=== PATIENT | male | born 1950 | race Caucasian/White ===

== ENCOUNTER 2021-11-21 09:16 | Inpatient (IN) | payer MEDICARE, OTHER ==
[~2021-11-21] VITALS: Ht 162.6 cm; Wt 58.9 kg
[2021-11-21 10:01] LABS: BASOPHILS % (AUTO) 0.3 % (0.0-2.0); EOSINOPHILS % (AUTO) 2.2 % (1.0-6.0); HEMATOCRIT 24.9 % (41-53); HEMOGLOBIN 8.3 g/dL (13.5-17.5); LYMPHOCYTES # (AUTO) 0.7 K/uL (1.0-4.8); LYMPHOCYTES % (AUTO) 16.7 % (22.0-44.0); MEAN CORPUSCULAR HEMOGLOBIN 31.4 pg (26.0-34.0); MEAN CORPUSCULAR HGB CONC 33.4 G/dL (31.0-37.0); MEAN CORPUSCULAR VOLUME 94 fL (80-100); MONOCYTES # (AUTO) 0.7 K/uL (0.1-1.0); MONOCYTES % (AUTO) 16.4 % (2.0-9.0); NEUTROPHILS # (AUTO) 2.8 K/uL (1.8-7.7); NEUTROPHILS % (AUTO) 64.4 % (40.0-70.0); PLATELET COUNT (AUTO) 139 K/uL (150-450); RED BLOOD CELL COUNT(AUTO) 2.64 MIL/uL (4.50-5.90); RED CELL DISTRIBUTION WIDTH 14.4 % (11.5-14.5)
[2021-11-21 10:13] LABS: CALCIUM, TOTAL 8.4 mg/dL (8.8-10.5); CREATININE 4.03 mg/dL (0.60-1.30); POTASSIUM 4.3 mmol/L (3.5-5.1)
[2021-11-21 10:19] LABS: ALBUMIN 2.6 g/dL (3.4-5.0); BILIRUBIN,TOTAL 0.3 mg/dL (0.1-1.0); TOTAL PROTEIN, SERUM 6.1 g/dL (6.4-8.2)
[2021-11-21 10:20] LABS: INR 0.9 (0.9-1.1); PROTHROMBIN TIME 9.9 SEC (9.4-11.6)
[2021-11-21] MEDS ORDERED: OxyCODONE HCL/ACETAMINOPHEN 5-325 MG TABLET PO PRN (22:45)
[2021-11-21] MEDS ORDERED: ACETAMINOPHEN 325 MG TABLET PO PRN (22:45)
[2021-11-21] MEDS ORDERED: HEPARIN SODIUM,PORCINE 5,000 UNITS/ML VIAL IVP PRN (23:00)
[2021-11-21] MEDS ORDERED: HEPARIN SODIUM,PORCINE 5,000 UNITS/ML VIAL IVP ONE (23:00)
[2021-11-21] MEDS: HEPARIN SODIUM 25000 UNITS/D5W 250 ML IV PRN (23:08)
[2021-11-21] MEDS: MORPHINE SULFATE 2 MG/ML SYRINGE IVP PRN (23:10)
[2021-11-21 23:19] LABS: HEMOGLOBIN 8.9 g/dL (13.5-17.5); LYMPHOCYTES # (AUTO) 0.7 K/uL (1.0-4.8); NEUTROPHILS % (AUTO) 68.2 % (40.0-70.0); PLATELET COUNT (AUTO) 159 K/uL (150-450)
[2021-11-21 23:25] LABS: BASOPHILS % (AUTO) 0.1 % (0.0-2.0); EOSINOPHILS % (AUTO) 1.1 % (1.0-6.0); HEMATOCRIT 26.7 % (41-53); LYMPHOCYTES % (AUTO) 15.3 % (22.0-44.0); MEAN CORPUSCULAR HGB CONC 33.4 G/dL (31.0-37.0); MEAN CORPUSCULAR VOLUME 96 fL (80-100); MONOCYTES # (AUTO) 0.7 K/uL (0.1-1.0); MONOCYTES % (AUTO) 15.3 % (2.0-9.0); RED BLOOD CELL COUNT(AUTO) 2.79 MIL/uL (4.50-5.90)
[2021-11-22 00:32] LABS: PROTHROMBIN TIME 10.5 SEC (9.4-11.6)
[2021-11-22 01:04] LABS: APPEARANCE,URINE CLEAR (CLEAR); BILIRUBIN,URINE NEGATIVE (NEGATIVE); GLUCOSE, URINE (UA) NEGATIVE (NEGATIVE); KETONES,URINE NEGATIVE (NEGATIVE); LEUKOCYTE ESTERASE ,URINE NEGATIVE (NEGATIVE); NITRATE,URINE NEGATIVE (NEGATIVE); OCCULT BLOOD,URINE MODERATE (NEGATIVE); PH,URINE 5.5 (5.0-8.0); PROTEIN,URINE SEE CONFIRM (NEGATIVE)
[2021-11-22 01:16] LABS: SULFOSALICYLIC ACID,URINE 3+ (Negative)
[2021-11-22 01:18] LABS: RBC,URINE 0-2 /HPF (0-2)
[2021-11-22 01:19] LABS: BACTERIA,URINE None Seen /HPF (None Seen); WBC,URINE None Seen /HPF (0-5)
[2021-11-22 02:39] LABS: COVID AG,FIA SOURCE NASOPHARYNGEAL
[2021-11-22 05:59] LABS: BASOPHILS % (AUTO) 0.4 % (0.0-2.0); HEMATOCRIT 23.4 % (41-53); HEMOGLOBIN 7.8 g/dL (13.5-17.5); LYMPHOCYTES # (AUTO) 0.8 K/uL (1.0-4.8); LYMPHOCYTES % (AUTO) 18.4 % (22.0-44.0); MEAN CORPUSCULAR HEMOGLOBIN 31.3 pg (26.0-34.0); MEAN CORPUSCULAR HGB CONC 33.2 G/dL (31.0-37.0); MEAN CORPUSCULAR VOLUME 94 fL (80-100); MONOCYTES # (AUTO) 0.6 K/uL (0.1-1.0); MONOCYTES % (AUTO) 15.1 % (2.0-9.0); NEUTROPHILS # (AUTO) 2.8 K/uL (1.8-7.7); NEUTROPHILS % (AUTO) 65.1 % (40.0-70.0); PLATELET COUNT (AUTO) 153 K/uL (150-450); RED BLOOD CELL COUNT(AUTO) 2.48 MIL/uL (4.50-5.90); RED CELL DISTRIBUTION WIDTH 14.6 % (11.5-14.5)
[2021-11-22 06:08] LABS: ALBUMIN 2.7 g/dL (3.4-5.0); BILIRUBIN,TOTAL 0.4 mg/dL (0.1-1.0); CALCIUM, TOTAL 8.7 mg/dL (8.8-10.5); CREATININE 3.49 mg/dL (0.60-1.30); POTASSIUM 4.6 mmol/L (3.5-5.1); TOTAL PROTEIN, SERUM 6.4 g/dL (6.4-8.2)
[2021-11-22] MEDS: MORPHINE SULFATE 2 MG/ML SYRINGE IVP PRN ×2 (06:08→21:28)
[2021-11-22] MEDS: ALBUTEROL SULFATE 2.5 MG/0.5 ML NEB SOLUTION NEB PRN (06:08)
[2021-11-22] MEDS ORDERED: ALBU8.5H8 IH (07:39)
[2021-11-22] MEDS ORDERED: GABA-1216 PO (07:39)
[2021-11-22] MEDS ORDERED: FURO40 PO (07:39)
[2021-11-22] MEDS ORDERED: ISOS30TA92 PO (07:39)
[2021-11-22] MEDS ORDERED: ASPI-1227 PO (07:39)
[2021-11-22] MEDS ORDERED: GUAIF10 PO (07:39)
[2021-11-22] MEDS ORDERED: MIRT-89 PO (07:39)
[2021-11-22] MEDS ORDERED: ALLO100T2 PO (07:39)
[2021-11-22] MEDS ORDERED: AMLO-257 PO (07:39)
[2021-11-22] MEDS ORDERED: ATOR40TA28 PO (07:39)
[2021-11-22] MEDS ORDERED: METO-558 PO (07:39)
[2021-11-22] MEDS ORDERED: RANO500T3 PO (07:39)
[2021-11-22] MEDS ORDERED: NITR0.4T52 SL (07:39)
[2021-11-22] MEDS ORDERED: DOCU-270 PO (07:39)
[2021-11-22] MEDS ORDERED: CALC0.2521 PO (07:39)
[2021-11-22] MEDS ORDERED: GABA-1181 PO (14:06)
[2021-11-22] MEDS ORDERED: ISOS60TA77 PO (14:06)
[2021-11-22] MEDS ORDERED: FERR325T23 PO (14:06)
[2021-11-22] MEDS: DEXTROSE 5%-0.45% SODIUM CHL 1,000 ML IV SCH ×2 (14:18→23:55)
[2021-11-22] MEDS: FERROUS SULFATE 325 MG EC TABLET PO SCH (17:16)
[2021-11-22] MEDS: MIRTAZAPINE 15 MG TABLET PO SCH (21:00)
[2021-11-22] MEDS: DOCUSATE SODIUM 100 MG CAPSULE PO SCH (21:00)
[2021-11-22] MEDS: GABAPENTIN 300 MG CAPSULE PO SCH (21:00)
[2021-11-22] MEDS: RANOLAZINE 500 MG ER TABLET PO SCH (21:00)
[2021-11-23] MEDS: IPRATROPIUM BROMIDE 0.5 MG/2.5 ML NEB SOLUTION NEB PRN (02:35)
[2021-11-23 07:06] LABS: ALBUMIN 2.4 g/dL (3.4-5.0); BILIRUBIN,TOTAL 0.4 mg/dL (0.1-1.0); CALCIUM, TOTAL 8.5 mg/dL (8.8-10.5); CREATININE 3.2 mg/dL (0.60-1.30); MAGNESIUM 2.1 mg/dL (1.80-2.40); PHOSPHORUS 2.9 mg/dL (2.5-4.9); POTASSIUM 4.2 mmol/L (3.5-5.1)
[2021-11-23] MEDS: FERROUS SULFATE 325 MG EC TABLET PO SCH ×2 (07:06→18:46)
[2021-11-23 07:19] LABS: BASOPHILS % (AUTO) 0.4 % (0.0-2.0); EOSINOPHILS % (AUTO) 0.2 % (1.0-6.0); HEMATOCRIT 22.3 % (41-53); HEMOGLOBIN 7.4 g/dL (13.5-17.5); LYMPHOCYTES % (AUTO) 19.1 % (22.0-44.0); MEAN CORPUSCULAR HEMOGLOBIN 31.5 pg (26.0-34.0); MEAN CORPUSCULAR HGB CONC 33.3 G/dL (31.0-37.0); MEAN CORPUSCULAR VOLUME 95 fL (80-100); MONOCYTES # (AUTO) 0.5 K/uL (0.1-1.0); MONOCYTES % (AUTO) 10.6 % (2.0-9.0); NEUTROPHILS # (AUTO) 3.6 K/uL (1.8-7.7); NEUTROPHILS % (AUTO) 69.7 % (40.0-70.0); PLATELET COUNT (AUTO) 185 K/uL (150-450); RED BLOOD CELL COUNT(AUTO) 2.36 MIL/uL (4.50-5.90); RED CELL DISTRIBUTION WIDTH 14.8 % (11.5-14.5)
[2021-11-23] MEDS: AmLODIPine BESYLATE 5 MG TABLET PO SCH (08:38)
[2021-11-23] MEDS: ASPIRIN 81 MG DR TABLET PO SCH (08:39)
[2021-11-23] MEDS: ATORVASTATIN CALCIUM 40 MG TABLET PO SCH (08:45)
[2021-11-23] MEDS: FUROSEMIDE 40 MG TABLET PO SCH (09:19)
[2021-11-23] MEDS: RANOLAZINE 500 MG ER TABLET PO SCH ×2 (09:19→20:46)
[2021-11-23] MEDS: ISOSORBIDE MONONITRATE 60 MG ER TABLET PO SCH (09:19)
[2021-11-23] MEDS: METOPROLOL SUCCINATE 50 MG ER TABLET PO SCH (09:19)
[2021-11-23] MEDS: CALCITRIOL 0.25 MCG CAPSULE PO SCH (09:19)
[2021-11-23] MEDS: DOCUSATE SODIUM 100 MG CAPSULE PO SCH ×3 (09:29→20:46)
[2021-11-23] MEDS: GABAPENTIN 300 MG CAPSULE PO SCH ×4 (11:11→20:46)
[2021-11-23 15:23] VITALS: BP 106/51
[2021-11-23] MEDS: HEPARIN SODIUM,PORCINE 5,000 UNITS/ML VIAL IVP PRN (16:20)
[2021-11-23 19:43] VITALS: BP 119/53
[2021-11-23] MEDS: MIRTAZAPINE 15 MG TABLET PO SCH ×2 (20:46→23:08)
[2021-11-24 00:10] VITALS: BP 121/54
[2021-11-24 04:43] VITALS: BP 128/58
[2021-11-24 07:32] VITALS: BP 118/56
[2021-11-24] MEDS: RANOLAZINE 500 MG ER TABLET PO SCH ×3 (08:07→20:37)
[2021-11-24] MEDS: AmLODIPine BESYLATE 5 MG TABLET PO SCH (08:08)
[2021-11-24] MEDS: FERROUS SULFATE 325 MG EC TABLET PO SCH ×2 (08:08→18:02)
[2021-11-24] MEDS: METOPROLOL SUCCINATE 50 MG ER TABLET PO SCH (08:08)
[2021-11-24] MEDS: DOCUSATE SODIUM 100 MG CAPSULE PO SCH ×3 (08:08→20:37)
[2021-11-24] MEDS: ISOSORBIDE MONONITRATE 60 MG ER TABLET PO SCH (08:08)
[2021-11-24] MEDS: FUROSEMIDE 40 MG TABLET PO SCH (08:08)
[2021-11-24] MEDS: ASPIRIN 81 MG DR TABLET PO SCH (08:08)
[2021-11-24] MEDS: ATORVASTATIN CALCIUM 40 MG TABLET PO SCH (08:08)
[2021-11-24] MEDS: GABAPENTIN 300 MG CAPSULE PO SCH ×3 (08:08→19:44)
[2021-11-24] MEDS: HEPARIN SODIUM,PORCINE 5,000 UNITS/ML VIAL IVP PRN (08:17)
[2021-11-24 11:23] VITALS: BP 120/54
[2021-11-24] MEDS: HEPARIN SODIUM 25000 UNITS/D5W 250 ML IV PRN (18:05)
[2021-11-24 20:14] VITALS: BP 102/50
[2021-11-24] MEDS: MIRTAZAPINE 15 MG TABLET PO SCH (20:36)
[2021-11-24 22:53] LABS: BASOPHILS % (AUTO) 0.3 % (0.0-2.0); MEAN CORPUSCULAR HEMOGLOBIN 31.3 pg (26.0-34.0); MONOCYTES # (AUTO) 0.6 K/uL (0.1-1.0); NEUTROPHILS % (AUTO) 62.9 % (40.0-70.0)
[2021-11-24 22:57] LABS: EOSINOPHILS % (AUTO) 1.2 % (1.0-6.0); LYMPHOCYTES # (AUTO) 1.7 K/uL (1.0-4.8); LYMPHOCYTES % (AUTO) 26.6 % (22.0-44.0); MEAN CORPUSCULAR HGB CONC 32.7 G/dL (31.0-37.0); MEAN CORPUSCULAR VOLUME 96 fL (80-100); PLATELET COUNT (AUTO) 233 K/uL (150-450); RED BLOOD CELL COUNT(AUTO) 1.78 MIL/uL (4.50-5.90)
[2021-11-24 23:01] LABS: HEMATOCRIT 17.1 % (41-53); HEMOGLOBIN 5.6 g/dL (13.5-17.5)
[2021-11-24] MEDS ORDERED: SODIUM CHLORIDE 0.9% 500 ML IV ONE (23:11)
[2021-11-24 23:19] VITALS: BP 109/55
[2021-11-25] VITALS (20 sets, daily range): BP systolic 98–138; BP diastolic 42–88
[2021-11-25 06:46] LABS: BASOPHILS % (AUTO) 0.2 % (0.0-2.0); HEMATOCRIT 23.3 % (41-53); HEMOGLOBIN 7.9 g/dL (13.5-17.5); LYMPHOCYTES # (AUTO) 1.6 K/uL (1.0-4.8); MEAN CORPUSCULAR HEMOGLOBIN 31.6 pg (26.0-34.0); MEAN CORPUSCULAR HGB CONC 33.8 G/dL (31.0-37.0); MEAN CORPUSCULAR VOLUME 93 fL (80-100); MONOCYTES # (AUTO) 0.8 K/uL (0.1-1.0); MONOCYTES % (AUTO) 10.9 % (2.0-9.0); NEUTROPHILS # (AUTO) 4.7 K/uL (1.8-7.7); NEUTROPHILS % (AUTO) 63.9 % (40.0-70.0); PLATELET COUNT (AUTO) 227 K/uL (150-450); RED BLOOD CELL COUNT(AUTO) 2.49 MIL/uL (4.50-5.90); RED CELL DISTRIBUTION WIDTH 14.4 % (11.5-14.5)
[2021-11-25] MEDS ORDERED: SODIUM CHLORIDE 0.9% 100 ML ONE (06:56)
[2021-11-25] MEDS: FERROUS SULFATE 325 MG EC TABLET PO SCH ×2 (08:00→16:27)
[2021-11-25] MEDS: DOCUSATE SODIUM 100 MG CAPSULE PO SCH ×2 (08:19→21:11)
[2021-11-25] MEDS: ASPIRIN 81 MG DR TABLET PO SCH (08:20)
[2021-11-25] MEDS: ATORVASTATIN CALCIUM 40 MG TABLET PO SCH (08:21)
[2021-11-25] MEDS: FUROSEMIDE 40 MG TABLET PO SCH (08:21)
[2021-11-25] MEDS: AmLODIPine BESYLATE 5 MG TABLET PO SCH (08:23)
[2021-11-25] MEDS: CALCITRIOL 0.25 MCG CAPSULE PO SCH (08:23)
[2021-11-25] MEDS: GABAPENTIN 300 MG CAPSULE PO SCH ×3 (08:23→21:11)
[2021-11-25] MEDS: ISOSORBIDE MONONITRATE 60 MG ER TABLET PO SCH (09:00)
[2021-11-25] MEDS: RANOLAZINE 500 MG ER TABLET PO SCH ×2 (09:00→21:10)
[2021-11-25] MEDS: METOPROLOL SUCCINATE 50 MG ER TABLET PO SCH (09:00)
[2021-11-25 18:07] LABS: GLUCOMETER DEV NAME(LOC) 5S.1; GLUCOSE,POINT OF CARE 157 MG/DL (70-110)
[2021-11-25 18:37] LABS: HEMOGLOBIN 10.8 g/dL (13.5-17.5)
[2021-11-25] MEDS: METOPROLOL TARTRATE 25 MG TABLET PO SCH (21:10)
[2021-11-25] MEDS: MIRTAZAPINE 15 MG TABLET PO SCH (21:11)
[2021-11-26] VITALS (7 sets, daily range): BP systolic 117–167; BP diastolic 52–93
[2021-11-26] MEDS: FERROUS SULFATE 325 MG EC TABLET PO SCH ×2 (08:00→18:00)
[2021-11-26] MEDS: RANOLAZINE 500 MG ER TABLET PO SCH ×2 (09:00→20:55)
[2021-11-26] MEDS: ISOSORBIDE MONONITRATE 60 MG ER TABLET PO SCH (09:00)
[2021-11-26] MEDS: ATORVASTATIN CALCIUM 40 MG TABLET PO SCH (09:38)
[2021-11-26] MEDS: DOCUSATE SODIUM 100 MG CAPSULE PO SCH ×2 (09:38→20:55)
[2021-11-26] MEDS: FUROSEMIDE 40 MG TABLET PO SCH (09:39)
[2021-11-26] MEDS: ASPIRIN 81 MG DR TABLET PO SCH (09:39)
[2021-11-26] MEDS: METOPROLOL TARTRATE 25 MG TABLET PO SCH ×2 (09:39→20:55)
[2021-11-26] MEDS: GABAPENTIN 300 MG CAPSULE PO SCH ×3 (09:40→20:55)
[2021-11-26] MEDS: MIRTAZAPINE 15 MG TABLET PO SCH (20:55)
[2021-11-27 04:12] VITALS: BP 150/60
[2021-11-27 08:52] LABS: BASOPHILS % (AUTO) 0.2 % (0.0-2.0); EOSINOPHILS % (AUTO) 2.6 % (1.0-6.0); HEMATOCRIT 32.2 % (41-53); HEMOGLOBIN 10.8 g/dL (13.5-17.5); LYMPHOCYTES # (AUTO) 0.9 K/uL (1.0-4.8); LYMPHOCYTES % (AUTO) 10.1 % (22.0-44.0); MEAN CORPUSCULAR HEMOGLOBIN 29.8 pg (26.0-34.0); MEAN CORPUSCULAR HGB CONC 33.5 G/dL (31.0-37.0); MEAN CORPUSCULAR VOLUME 89 fL (80-100); MONOCYTES # (AUTO) 0.7 K/uL (0.1-1.0); MONOCYTES % (AUTO) 8.2 % (2.0-9.0); NEUTROPHILS # (AUTO) 7.1 K/uL (1.8-7.7); NEUTROPHILS % (AUTO) 78.9 % (40.0-70.0); PLATELET COUNT (AUTO) 326 K/uL (150-450); RED BLOOD CELL COUNT(AUTO) 3.62 MIL/uL (4.50-5.90); RED CELL DISTRIBUTION WIDTH 17.8 % (11.5-14.5)
[2021-11-27 09:16] LABS: ALBUMIN 2.5 g/dL (3.4-5.0); BILIRUBIN,TOTAL 0.5 mg/dL (0.1-1.0); CALCIUM, TOTAL 9.7 mg/dL (8.8-10.5); CREATININE 3.22 mg/dL (0.60-1.30); MAGNESIUM 2.4 mg/dL (1.80-2.40); PHOSPHORUS 5.2 mg/dL (2.5-4.9); POTASSIUM 4.9 mmol/L (3.5-5.1); TOTAL PROTEIN, SERUM 7.2 g/dL (6.4-8.2)
[2021-11-27] MEDS: GABAPENTIN 300 MG CAPSULE PO SCH ×3 (09:31→20:23)
[2021-11-27] MEDS: PANTOPRAZOLE SODIUM 40 MG DR TABLET PO SCH (09:32)
[2021-11-27] MEDS: ATORVASTATIN CALCIUM 40 MG TABLET PO SCH (09:32)
[2021-11-27] MEDS: METOPROLOL TARTRATE 25 MG TABLET PO SCH ×2 (09:32→20:22)
[2021-11-27] MEDS: DOCUSATE SODIUM 100 MG CAPSULE PO SCH ×2 (09:32→20:21)
[2021-11-27] MEDS: FERROUS SULFATE 325 MG EC TABLET PO SCH ×2 (09:32→17:18)
[2021-11-27] MEDS: ISOSORBIDE MONONITRATE 60 MG ER TABLET PO SCH (09:32)
[2021-11-27 09:33] VITALS: BP 148/77
[2021-11-27] MEDS: RANOLAZINE 500 MG ER TABLET PO SCH ×2 (09:33→20:21)
[2021-11-27] MEDS: FUROSEMIDE 40 MG TABLET PO SCH (09:33)
[2021-11-27] MEDS: ASPIRIN 81 MG DR TABLET PO SCH (09:33)
[2021-11-27 16:13] VITALS: BP 133/61
[2021-11-27 19:45] VITALS: BP 111/59
[2021-11-27] MEDS: MIRTAZAPINE 15 MG TABLET PO SCH (20:21)
[2021-11-27 23:52] VITALS: BP 124/90
[2021-11-28 04:06] VITALS: BP 136/76
[2021-11-28 07:29] VITALS: BP 146/75
[2021-11-28] MEDS: ISOSORBIDE MONONITRATE 60 MG ER TABLET PO SCH (08:24)
[2021-11-28] MEDS: ASPIRIN 81 MG DR TABLET PO SCH (08:24)
[2021-11-28] MEDS: ATORVASTATIN CALCIUM 40 MG TABLET PO SCH (08:24)
[2021-11-28] MEDS: METOPROLOL TARTRATE 25 MG TABLET PO SCH ×2 (08:25→20:17)
[2021-11-28] MEDS: PANTOPRAZOLE SODIUM 40 MG DR TABLET PO SCH (08:25)
[2021-11-28] MEDS: CALCITRIOL 0.25 MCG CAPSULE PO SCH (08:25)
[2021-11-28] MEDS: GABAPENTIN 300 MG CAPSULE PO SCH ×3 (08:25→20:17)
[2021-11-28] MEDS: DOCUSATE SODIUM 100 MG CAPSULE PO SCH ×2 (08:25→20:17)
[2021-11-28] MEDS: RANOLAZINE 500 MG ER TABLET PO SCH ×2 (08:25→20:17)
[2021-11-28] MEDS: FERROUS SULFATE 325 MG EC TABLET PO SCH ×2 (08:26→16:59)
[2021-11-28] MEDS: FUROSEMIDE 40 MG TABLET PO SCH (08:26)
[2021-11-28 11:18] VITALS: BP 108/54
[2021-11-28 11:33] LABS: BASOPHILS % (AUTO) 0.4 % (0.0-2.0); EOSINOPHILS % (AUTO) 1.4 % (1.0-6.0); HEMATOCRIT 32.2 % (41-53); HEMOGLOBIN 10.7 g/dL (13.5-17.5); LYMPHOCYTES # (AUTO) 0.7 K/uL (1.0-4.8); LYMPHOCYTES % (AUTO) 7.8 % (22.0-44.0); MEAN CORPUSCULAR HEMOGLOBIN 30.1 pg (26.0-34.0); MEAN CORPUSCULAR HGB CONC 33.1 G/dL (31.0-37.0); MEAN CORPUSCULAR VOLUME 91 fL (80-100); MONOCYTES # (AUTO) 0.5 K/uL (0.1-1.0); MONOCYTES % (AUTO) 5.9 % (2.0-9.0); NEUTROPHILS # (AUTO) 7.2 K/uL (1.8-7.7); NEUTROPHILS % (AUTO) 84.5 % (40.0-70.0); PLATELET COUNT (AUTO) 359 K/uL (150-450); RED BLOOD CELL COUNT(AUTO) 3.54 MIL/uL (4.50-5.90); RED CELL DISTRIBUTION WIDTH 18.1 % (11.5-14.5)
[2021-11-28 15:41] VITALS: BP 118/85
[2021-11-28 19:53] VITALS: BP 139/66
[2021-11-28] MEDS: MIRTAZAPINE 15 MG TABLET PO SCH (20:17)
[2021-11-28 23:30] VITALS: BP 113/69
[2021-11-29 03:23] VITALS: BP 122/70
[2021-11-29 07:23] VITALS: BP 121/70
[2021-11-29] MEDS: RANOLAZINE 500 MG ER TABLET PO SCH ×2 (08:22→20:32)
[2021-11-29] MEDS: DOCUSATE SODIUM 100 MG CAPSULE PO SCH ×2 (08:22→20:32)
[2021-11-29] MEDS: METOPROLOL TARTRATE 25 MG TABLET PO SCH ×2 (08:22→20:32)
[2021-11-29] MEDS: ATORVASTATIN CALCIUM 40 MG TABLET PO SCH (08:22)
[2021-11-29] MEDS: FUROSEMIDE 40 MG TABLET PO SCH (08:22)
[2021-11-29] MEDS: PANTOPRAZOLE SODIUM 40 MG DR TABLET PO SCH (08:22)
[2021-11-29] MEDS: ISOSORBIDE MONONITRATE 60 MG ER TABLET PO SCH (08:22)
[2021-11-29] MEDS: ASPIRIN 81 MG DR TABLET PO SCH (08:22)
[2021-11-29] MEDS: FERROUS SULFATE 325 MG EC TABLET PO SCH ×2 (08:22→16:48)
[2021-11-29] MEDS: GABAPENTIN 300 MG CAPSULE PO SCH ×3 (08:22→20:32)
[2021-11-29 11:39] VITALS: BP 111/56
[2021-11-29 15:54] VITALS: BP 138/72
[2021-11-29 20:00] VITALS: BP 133/72
[2021-11-29] MEDS: MIRTAZAPINE 15 MG TABLET PO SCH (20:39)
[2021-11-29 23:15] VITALS: BP 138/65
[2021-11-30 00:01] VITALS: BP 138/65
[2021-11-30 05:15] VITALS: BP 150/71
[2021-11-30 08:17] VITALS: BP 129/72
[2021-11-30] MEDS: METOPROLOL TARTRATE 25 MG TABLET PO SCH ×2 (08:29→20:20)
[2021-11-30] MEDS: FERROUS SULFATE 325 MG EC TABLET PO SCH ×2 (08:30→18:38)
[2021-11-30] MEDS: DOCUSATE SODIUM 100 MG CAPSULE PO SCH ×2 (08:30→20:20)
[2021-11-30] MEDS: FUROSEMIDE 40 MG TABLET PO SCH (08:30)
[2021-11-30] MEDS: PANTOPRAZOLE SODIUM 40 MG DR TABLET PO SCH (08:30)
[2021-11-30] MEDS: CALCITRIOL 0.25 MCG CAPSULE PO SCH (08:30)
[2021-11-30] MEDS: ATORVASTATIN CALCIUM 40 MG TABLET PO SCH (08:30)
[2021-11-30] MEDS: GABAPENTIN 300 MG CAPSULE PO SCH ×3 (08:30→20:20)
[2021-11-30] MEDS: ISOSORBIDE MONONITRATE 60 MG ER TABLET PO SCH (08:30)
[2021-11-30] MEDS: RANOLAZINE 500 MG ER TABLET PO SCH ×2 (08:30→20:21)
[2021-11-30] MEDS: ASPIRIN 81 MG DR TABLET PO SCH (08:32)
[2021-11-30 11:35] VITALS: BP 140/79
[2021-11-30 12:55] LABS: ABG CARBOXYHEMOGLOBIN 0.2 % (0.0-1.5); ABG HCO3 20.5 mmol/L (22.0-26.0); ABG METHEMOGLOBIN 0.1 % (0.0-1.5); ABG OXYGEN CONTENT 12.3 mL/dL (15.0-23.0); ABG OXYHEMOGLOBIN 83.7 % (94.0-100.0); ABG PCO2 38 mmHg (35-45); ABG PH 7.349 (7.35-7.450); ABG TOTAL HEMOGLOBIN 10.4 G/dL (12.0-18.0); PO2, ARTERIAL BG 51.3 mmHg (75.0-83.0); SOURCE, BLOOD GAS ARTERIAL; TEMPERATURE, FAHRENHEIT, BG 98.6 FAHREN (96.0-98.6)
[2021-11-30 12:59] LABS: O2 DEVICE,BLOOD GAS ROOM AIR (ROOM AIR); SITE, BLOOD GAS RT RADIAL
[2021-11-30 16:25] VITALS: BP 138/53
[2021-11-30 20:17] VITALS: BP 140/70
[2021-11-30] MEDS: MIRTAZAPINE 15 MG TABLET PO SCH (20:21)
[2021-11-30] MEDS: MORPHINE SULFATE 2 MG/ML SYRINGE IVP PRN (20:21)
[2021-12-01 00:15] VITALS: BP 103/68
[2021-12-01 06:24] VITALS: BP 108/56
[2021-12-01 07:52] VITALS: BP 101/62
[2021-12-01] MEDS: RANOLAZINE 500 MG ER TABLET PO SCH ×2 (08:57→21:00)
[2021-12-01] MEDS: ISOSORBIDE MONONITRATE 60 MG ER TABLET PO SCH (08:57)
[2021-12-01] MEDS: GABAPENTIN 300 MG CAPSULE PO SCH ×3 (08:59→21:00)
[2021-12-01] MEDS: DOCUSATE SODIUM 100 MG CAPSULE PO SCH ×2 (08:59→21:00)
[2021-12-01] MEDS: ASPIRIN 81 MG DR TABLET PO SCH (08:59)
[2021-12-01] MEDS: FUROSEMIDE 40 MG TABLET PO SCH (09:00)
[2021-12-01] MEDS: METOPROLOL TARTRATE 25 MG TABLET PO SCH ×2 (09:00→21:00)
[2021-12-01] MEDS: PANTOPRAZOLE SODIUM 40 MG DR TABLET PO SCH (09:00)
[2021-12-01] MEDS: ATORVASTATIN CALCIUM 40 MG TABLET PO SCH (09:00)
[2021-12-01] MEDS: FERROUS SULFATE 325 MG EC TABLET PO SCH ×2 (09:00→17:58)
[2021-12-01 11:08] VITALS: BP 108/72
[2021-12-01] MEDS: ALBUTEROL SULFATE 2.5 MG/0.5 ML NEB SOLUTION NEB PRN ×2 (11:35→15:21)
[2021-12-01] MEDS: IPRATROPIUM BROMIDE 0.5 MG/2.5 ML NEB SOLUTION NEB PRN ×2 (11:35→15:21)
[2021-12-01] MEDS ORDERED: ACETYLCYSTEINE 10% 100 MG/ML 4 ML NEB SOLUTION NEB ONE (13:45)
[2021-12-01 16:26] VITALS: BP 110/58
[2021-12-01] MEDS ORDERED: SODIUM CHLORIDE 0.9% 1,000 ML ONE (20:51)
[2021-12-01] MEDS: MIRTAZAPINE 15 MG TABLET PO SCH (21:00)
[2021-12-01 21:21] LABS: GLUCOMETER DEV NAME(LOC) 5N.1C; GLUCOSE,POINT OF CARE 169 MG/DL (70-110)
[2021-12-01 21:25] LABS: HEMATOCRIT 31.1 % (41-53); HEMOGLOBIN 9.9 g/dL (13.5-17.5)
[2021-12-01 23:56] VITALS: BP 104/66
[2021-12-02 05:40] VITALS: BP 104/50
[2021-12-02 08:25] VITALS: BP 50/32
[2021-12-02 08:41] VITALS: BP 60/40
[2021-12-02] MEDS: CALCITRIOL 0.25 MCG CAPSULE PO SCH (08:44)
[2021-12-02] MEDS: ASPIRIN 81 MG DR TABLET PO SCH (08:44)
[2021-12-02] MEDS: PANTOPRAZOLE SODIUM 40 MG DR TABLET PO SCH (08:44)
[2021-12-02] MEDS: GABAPENTIN 300 MG CAPSULE PO SCH ×3 (08:44→21:00)
[2021-12-02] MEDS: DOCUSATE SODIUM 100 MG CAPSULE PO SCH ×2 (08:44→21:00)
[2021-12-02] MEDS: FERROUS SULFATE 325 MG EC TABLET PO SCH ×2 (08:44→18:00)
[2021-12-02] MEDS: RANOLAZINE 500 MG ER TABLET PO SCH ×2 (08:45→21:00)
[2021-12-02] MEDS: FUROSEMIDE 40 MG TABLET PO SCH (09:00)
[2021-12-02] MEDS: METOPROLOL TARTRATE 25 MG TABLET PO SCH ×2 (09:00→21:00)
[2021-12-02] MEDS: ISOSORBIDE MONONITRATE 60 MG ER TABLET PO SCH (09:00)
[2021-12-02] MEDS: ATORVASTATIN CALCIUM 40 MG TABLET PO SCH (09:12)
[2021-12-02 13:21] VITALS: BP 70/40
[2021-12-02 16:55] VITALS: BP 75/40
[2021-12-02] MEDS: MIRTAZAPINE 15 MG TABLET PO SCH (21:00)
[2021-12-03] VITALS: BP 79/31
[2021-12-03 04:00] VITALS: BP 92/42
[2021-12-03 08:00] VITALS: BP 79/27
[2021-12-03] MEDS: FERROUS SULFATE 325 MG EC TABLET PO SCH ×2 (08:00→18:00)
[2021-12-03] MEDS: PANTOPRAZOLE SODIUM 40 MG DR TABLET PO SCH (09:00)
[2021-12-03] MEDS: ISOSORBIDE MONONITRATE 60 MG ER TABLET PO SCH (09:00)
[2021-12-03] MEDS: METOPROLOL TARTRATE 25 MG TABLET PO SCH (09:00)
[2021-12-03] MEDS: ATORVASTATIN CALCIUM 40 MG TABLET PO SCH (09:00)
[2021-12-03] MEDS: ASPIRIN 81 MG DR TABLET PO SCH (09:00)
[2021-12-03] MEDS: DOCUSATE SODIUM 100 MG CAPSULE PO SCH (09:00)
[2021-12-03] MEDS: GABAPENTIN 300 MG CAPSULE PO SCH ×2 (09:00→15:45)
[2021-12-03] MEDS: FUROSEMIDE 40 MG TABLET PO SCH (09:00)
[2021-12-03] MEDS: RANOLAZINE 500 MG ER TABLET PO SCH (09:00)
[2021-12-03] MEDS ORDERED: MORPHINE SULFATE 2 MG/ML SYRINGE IVP PRN (12:00)
[2021-12-03 12:10] VITALS: BP 74/50
[2021-12-03 15:55] VITALS: BP 72/41
[2021-12-03] MEDS ORDERED: 0.9% SODIUM CHLORIDE 10 ML SYRINGE IVP ONE (18:34)
[2021-12-03] MEDS ORDERED: AMIODARONE HCL 50 MG/ML 3 ML VIAL IV ONE (18:34)
[2021-12-03] MEDS ORDERED: SODIUM BICARBONATE [ADULT] 8.4% 50 MEQ/50 ML SYRINGE IVP ONE (18:34)
[2021-12-03] MEDS ORDERED: EPINEPHrine 1:10,000 [1 MG/10 ML] SYRINGE IVP ONE (18:34)
[2021-12-03] MEDS ORDERED: CALCIUM CHLORIDE 100 MG/ML 10 ML SYRINGE IVP ONE (18:34)
== END 2021-12-03 18:35 | DRG 177 ==
LOC: EMS 09:16 → 5N 11-23 13:37
PROVIDERS: ADMIT Internal Medicine; ATTEND Internal Medicine
PROC: 30233N1 Transfusion of Nonautologous Red Blood Cells into Peripheral Vein, Percutaneous Approach (ICD-10-PCS; principal; 2021-11-25)
DX: U07.1 COVID-19 (principal); I21.4 Non-ST elevation (NSTEMI) myocardial infarction; G93.49 Other encephalopathy; I12.0 Hypertensive chronic kidney disease with stage 5 chronic kidney disease or end stage renal disease; N17.9 Acute kidney failure, unspecified; N18.5 Chronic kidney disease, stage 5; E87.0 Hyperosmolality and hypernatremia; K92.2 Gastrointestinal hemorrhage, unspecified; Z66 Do not resuscitate; E11.22 Type 2 diabetes mellitus with diabetic chronic kidney disease; E83.51 Hypocalcemia; E78.5 Hyperlipidemia, unspecified; F03.90 Unspecified dementia, unspecified severity, without behavioral disturbance, psychotic disturbance, mood disturbance, and anxiety; I25.10 Atherosclerotic heart disease of native coronary artery without angina pectoris; I25.2 Old myocardial infarction; D64.9 Anemia, unspecified; Z87.891 Personal history of nicotine dependence
CPT/HCPCS: 36600; 70450; 71045; 80053; 81001; 81002; 82805; 82962; 83735; 83880; 84100; 84484; 85014; 85018; 85025; 85610; 85730; 86850; 86900; 86901; 86923; 87081; 92526; 92610; 93005; 93306; 94640; 94799; 97162; 97163; 97167; 97530; 97535; 99291; J0171; J0282; J1644; J2270; J3490; J7030; J7040; J7050; P9016; 36415-L1; 36415-TC; J7613; U0003